=== PATIENT | female | born 1970 | race Caucasian/White ===

== ENCOUNTER → 2016-08-27 | Outpatient (CLI) | payer BC ==
[2016-08-27 10:26] LABS: HEMOGLOBIN 13.6 gm/dl (12.3-15.3); RED BLOOD COUNT 4.65 M/UL (4.00-5.10); WHITE BLOOD COUNT 5.5 K/UL (4.5-11.0)
[2016-08-27 10:47] LABS: BUN/CREATININE RATIO 17 (0-10)
== END ==
LOC: LBRF 06:28
PROVIDERS: Internal Medicine
DX: E78.5 Hyperlipidemia, unspecified (principal); I10 Essential (primary) hypertension; R73.01 Impaired fasting glucose; Z79.899 Other long term (current) drug therapy
CPT/HCPCS: 36415; 80053; 80061; 84439; 84443; 85025

== ENCOUNTER → 2020-04-15 | Outpatient (CLI) | payer BC | LOC: LAB 13:58 | DX: Z20.822 Contact with and (suspected) exposure to COVID-19 (principal) | CPT/HCPCS: U0003 ==

== ENCOUNTER → 2020-09-07 | Outpatient (CLI) | payer BC ==
[2020-09-07 15:07] LABS: HEMOGLOBIN 13.4 gm/dl (12.3-15.3); RED BLOOD COUNT 4.51 M/UL (4.00-5.10); WHITE BLOOD COUNT 4.2 K/UL (4.5-11.0)
[2020-09-07 18:36] LABS: BUN/CREATININE RATIO 19 (0-10)
== END ==
LOC: LAB 13:49
PROVIDERS: Internal Medicine
DX: E04.1 Nontoxic single thyroid nodule (principal)
CPT/HCPCS: 36415; 80053; 80061; 83036; 84439; 84443; 85025

== ENCOUNTER → 2020-10-04 | Outpatient (CLI) | payer BC | LOC: LAB 17:26 | DX: Z20.822 Contact with and (suspected) exposure to COVID-19 (principal) | CPT/HCPCS: U0002 ==

== ENCOUNTER → 2020-11-29 | Outpatient (CLI) | payer BC | LOC: LAB 17:53 | DX: Z20.822 Contact with and (suspected) exposure to COVID-19 (principal) | CPT/HCPCS: U0002 ==

== ENCOUNTER → 2021-03-16 | Outpatient (CLI) | payer BC ==
[2021-03-16 13:03] LABS: HEMOGLOBIN 13.4 gm/dl (12.3-15.3); RED BLOOD COUNT 4.51 M/UL (4.00-5.10); WHITE BLOOD COUNT 4.5 K/UL (4.5-11.0)
[2021-03-17 07:11] LABS: A/G RATIO 1.6 (1.2-2.2); ALKALINE PHOSPHATASE, S 58 IU/L (44-121); ALT (SGPT) 17 IU/L (0-32); AST (SGOT) 16 IU/L (0-40); BILIRUBIN, TOTAL 0.4 mg/dL (0.0-1.2); BUN 11 mg/dL (6-24); BUN/CREATININE RATIO 17 (9-23); CALCIUM, SERUM 9.4 mg/dL (8.7-10.2); CARBON DIOXIDE, TOTAL 25 mmol/L (20-29); CHLORIDE, SERUM 100 mmol/L (96-106); CHOLESTEROL, TOTAL 164 mg/dL (100-199); CREATININE, SERUM 0.64 mg/dL (0.57-1.00); EGFR IF AFRICN AM 120 (>59); EGFR IF NONAFRICN AM 104 (>59); ESTIM. AVG GLU (EAG) 126 mg/dL (.); GLOBULIN, TOTAL 2.7 g/dL (1.5-4.5); GLUCOSE, SERUM 93 mg/dL (65-99); HDL CHOLESTEROL 47 mg/dL (>39); LDL CHOLESTEROL CALC 86 mg/dL (0-99); LDL/HDL RATIO 1.8 ratio (0.0-3.2); PROTEIN, TOTAL, SERUM 7.1 g/dL (6.0-8.5); SODIUM, SERUM 139 mmol/L (134-144); T. CHOL/HDL RATIO 3.5 ratio (0.0-4.4); TRIGLYCERIDES 181 mg/dL (0-149)
[2021-03-17 08:15] LABS: MAGNESIUM 1.9 mg/dL (1.6-2.3); TSH 0.458 uIU/mL (0.450-4.500); VITAMIN D, 25-HYDROXY 36.8 ng/mL (30.0-100.0)
== END ==
LOC: LAB 12:04
PROVIDERS: Internal Medicine Cardiovascular Disease
DX: Z13.1 Encounter for screening for diabetes mellitus (principal); Z13.220 Encounter for screening for lipoid disorders; R53.83 Other fatigue; E55.9 Vitamin D deficiency, unspecified; I10 Essential (primary) hypertension
CPT/HCPCS: 36415; 80053; 80061; 82607; 83036; 83735; 84439; 84443; 85025

== ENCOUNTER → 2021-03-23 | Outpatient (CLI) | payer BC | LOC: HEART 5 09:00 | DX: R53.83 Other fatigue (principal); R06.02 Shortness of breath; Z86.16 Personal history of COVID-19 | CPT/HCPCS: 93306 ==

== ENCOUNTER → 2021-10-14 | Outpatient (CLI) | payer BC ==
[2021-10-14 10:39] LABS: HEMOGLOBIN 13.9 gm/dl (12.3-15.3); RED BLOOD COUNT 4.65 M/UL (4.00-5.10); WHITE BLOOD COUNT 4.8 K/UL (4.5-11.0)
[2021-10-14 11:06] LABS: BUN/CREATININE RATIO 14 (0-10)
== END ==
LOC: LAB 10:02
PROVIDERS: Internal Medicine
DX: R53.83 Other fatigue (principal); E78.5 Hyperlipidemia, unspecified; I10 Essential (primary) hypertension; E55.9 Vitamin D deficiency, unspecified; Z51.81 Encounter for therapeutic drug level monitoring; R73.09 Other abnormal glucose
CPT/HCPCS: 36415; 80053; 80061; 82607; 82746; 83036; 84439; 84443; 85025